=== PATIENT | female | born 1955 | race Caucasian/White ===

== ENCOUNTER 2017-03-17 09:00 | Day surgery (SDC) | payer MEDICARE, BC ==
--- NOTE | 2017-03-17 07:31 | History and Physical Report ---
DATE: 03/16/2017. CHIEF COMPLAINT AND HISTORY OF CHIEF COMPLAINT: This patient presents with a history of an intractable lumbar radiculitis. An implanted spinal infusion system is in place infusing hydromorphone. During a recent refill battery depletion was noted. She is here for a battery change. PAST MEDICAL HISTORY: Chronic obstructive pulmonary disease, hypothyroidism. PAST SURGICAL HISTORY: Lower extremity fracture, shoulder surgery, cataract surgery. MEDICATIONS ON ADMISSION: To be provided. ALLERGIES: Xanax. SOCIAL HISTORY: Noncontributory. FAMILY HISTORY: Asthma, diabetes, coronary artery disease, hypertension, cancer. REVIEW OF SYSTEMS: The patient seems appropriate and in no acute distress. The remainder of the systems review shows dentures, headaches, breathing difficulty, irregular heartbeat, peripheral edema, bladder dysfunction, reflux, hepatitis, degenerative arthritis, fibromyalgia, and depression. PHYSICAL EXAMINATION: General: Height is 5 feet, 10 inches. Weight is 140. Vital Signs: Unavailable. HEENT: Within normal limits. Lungs: Clear. Heart: Regular rate and rhythm. Abdomen: Nontender. Musculoskeletal: Examination of the musculoskeletal system shows the pump in the right posterior gluteal margin. The incisional site is intact. Midline spinal catheter incision is intact. Sensory agrawal are intact to the areas. Chronic pain pattern with bilateral lower extremity radiculitis, across the front and back surface of both legs. Motor and sensory field functionality is intact. Neurologic: Cranial nerves are intact. IMPRESSION: 1. LUMBAR RADICULITIS, ICD-10 CODE M54.16 AND M54.17. 2. IMPLANTED SPINAL OPIOID INFUSION SYSTEM WITH HYDROMORPHONE WITH BATTERY DEPLETION. PLAN: The patient is here on an outpatient basis for battery replacement. No parameter changes will be made. The potential risks, side effects, and complications have all been discussed and reviewed. JOB NUMBER: [id number] cc: Ronald Delong
[~2017-03-17 09:00] MED LIST: ACETAMINOPHEN 1,000 MG/100 ML BTL IV ONE; FAMOTIDINE 20MG TABLET PO ONE; HYDROMORPHONE HCL 0.6 GM in 0.9 % SODIUM CHLORIDE 10ML VIA 20 ML IV ONE; HYDROMORPHONE HCL/PF 0.002 MG in 0.9 % SODIUM CHLORIDE 10ML VIA 0.998 ML IVP ONE; MECLIZINE 25 MG TABLET PO ONE; METOCLOPRAMIDE 10 MG TABLET PO ONE; VANCOMYCIN HCL 1,000 MG in 0.9 % SODIUM CHLORIDE 250ML 250 ML IVPB ONE
[2017-03-17] MEDS ORDERED: BUPIVACAINE 0.75% W/EPI MPF 30ML VIAL IVP ONE (09:01)
[2017-03-17] MEDS ORDERED: CEFAZOLIN 1G VIAL IM ONE (09:01)
[2017-03-17] MEDS ORDERED: MIDAZOLAM HCL 2MG/2ML VIAL IV ONE (09:01)
[2017-03-17] MEDS ORDERED: PROPOFOL 10 MG/ML VIAL IV ONE (09:01)
[2017-03-17] MEDS ORDERED: FENTANYL PF 100MCG/2ML VIAL IV ONE (09:01)
[2017-03-17] MEDS ORDERED: LIDOCAINE 1% W/EPI 1:200,000 MPF 30ML SQ ONE (09:01)
[2017-03-17] MEDS ORDERED: LIDOCAINE 2% MDV (20MG/ML) 20ML VIAL IV ONE (09:01)
[2017-03-17] MEDS ORDERED: OXYCODONE/APAP 10MG-325MG TABLET PO ONE (09:01)
--- NOTE | 2017-03-18 09:05 | Operative Note - [place] ---
DATE OF SURGERY: 03/17/2017. PREOPERATIVE DIAGNOSIS: 1. LUMBAR RADICULITIS, ICD-10 CODE M54.16 AND M54.17. 2. PROGRAMMABLE PUMP SPINAL OPIOID INFUSION WITH HYDROMORPHONE MALFUNCTION. POSTOPERATIVE DIAGNOSIS: 1. LUMBAR RADICULITIS, ICD-10 CODE M54.16 AND M54.17. 2. PROGRAMMABLE PUMP SPINAL OPIOID INFUSION WITH HYDROMORPHONE MALFUNCTION. OPERATION: 1. Incision, subcutaneous dissection, and removal and replacement of programmable pump at right posterior gluteal margin. 2. Incision, subcutaneous dissection, and revision of spinal catheter at pouch. 3. Interface revised catheter to pump, place into pouch, and secure into pump pouch with nonabsorbable suture. 4. Placement of 24-gauge Sands needle through the access port programmable pump with aspiration of 1.0 mL of catheter contents, clearing catheter of opioid and cerebrospinal fluid mixture. 5. Diagnostic myelography with radiologic supervision and interpretation confirming catheter tip at T7, appropriate functionality, appropriate contrast flow characteristics in the spinal space. 6. Programming of pump to deliver by continuous infusion hydromorphone 2.5 mg per day. All alarm values reset. 7. Closure of incision with Vicryl for the fascia and running subcuticular Vicryl for the skin. Dermabond closure. SURGEON: Juan Marina D.O. ANESTHESIA: Local sedation. ANESTHESIA PROVIDER: Federico Osullivan CRNA. INDICATION: This patient presents with a history of intractable lumbar radiculitis. A spinal opioid infusion system infusing hydromorphone is in place. Over the last several months this patient began hearing an irregular, noncyclic alarm from her pump. Assessment of the logs by way of computer evaluation identified a periodic pause and restarting. Each time the system went into a pause mode it alarmed but would spontaneously restart. There was no definite cycle to the pause. It was irregular with the last approximately three days ago. Computer assessment did confirm the pausing on an irregular but regular basis. Because it was occurring over time we checked with [employer] technical support and they suggested replacing the device. DESCRIPTION OF THE PROCEDURE: Intravenous lines, vital sign monitoring, and intravenous sedation. Prepped and draped with sterile technique. The patient was was positioned prone. The pump pouch at the right posterior gluteal margin was marked and infiltrated. An incision was made and subcutaneous dissection was conducted to the pouch. The pouch was opened and the pump was exteriorized. The pump was from the internal catheter. Immediately on visualization of the pouch, the external catheter was identified and it had a series of kinks and scar tissue. It was felt appropriate to revise and replace that component of the catheter which was kinked and had scar tissue. The catheter was then cut and sectioned proximal to the scar tissue, and a new catheter component was resected into the existing indwelling catheter by way of a connector and revision kit. A new pump was placed onto the field prefilled with hydromorphone at 30 mg per mL. The revised catheter was interfaced to the pump. The pump was then placed in the pouch and secured to the fascia with nonabsorbable suture. A curved 24-gauge Sands needle was inserted into the access port, and 1.0 mL of catheter contents was aspirated, clearing the catheter of opioid and cerebrospinal fluid mixture. Contrast was then injected , and the resulting myelogram with radiologic supervision and interpretation showed appropriate flow characteristics through the pump and catheter. No kinks , tears, or bends were noted. The catheter tip was noted at T7 with appropriate flow characteristics in the spinal space confirming functionality. With the pump in the pouch, the Dacron seat was closed with Vicryl. The fascia was then closed with Vicryl in a running subcuticular fashion to approximate the edges of the wound. A Dermabond closure was placed over the wound. The pump was then programmed to deliver by continuous infusion hydromorphone at 2.5 mg a day. She was transported to the recovery room stable, showing no side effects from the procedure or the sedation. DISCHARGE INSTRUCTIONS: 1. The sites are to remain clean and dry. No showering or bathing in any way that would disrupt the dressings. If this happens, contact the clinic. 2. Standard medications are to be resumed including Levaquin the antibiotic 500 mg once a day for 14 days. 3. Spinal opioid side effects including respiratory, depression, nausea, vomiting, constipation, urinary retention, and rash have all been discussed and reviewed. 4. All other instructions were provided. Numbers to contact with problems were given. She was then discharged. 5. She will be seen in the office in five to seven days to evaluate the sites. Until then, she is to keep her activities low. When she is evaluated, we will place the pump back into a flex dose with a slow, continuous q.-6-hour bolus. JOB NUMBER: [id number] cc: Helen Rodgers M.D. [facility]
== END 2017-03-17 12:40 | disposition home or self-care (01) ==
LOC: SUR 09:00
PROVIDERS: ATTEND Pain Medicine Interventional Pain Medicine
DX: T85.695A Other mechanical complication of other nervous system device, implant or graft, initial encounter (principal); M54.16 Radiculopathy, lumbar region; M54.17 Radiculopathy, lumbosacral region; E78.00 Pure hypercholesterolemia, unspecified; J44.9 Chronic obstructive pulmonary disease, unspecified; Z72.0 Tobacco use; C18.9 Malignant neoplasm of colon, unspecified; C78.7 Secondary malignant neoplasm of liver and intrahepatic bile duct
CPT/HCPCS: 62350; 62362; 00630; 62367; Q9967; J3370; J1170; J3010; J3490; C1755; J0690; J7050